=== PATIENT | female | born 1930 | race Caucasian/White ===

== ENCOUNTER 2020-04-02 15:06 | Inpatient (IN) | payer MEDICARE ==
[~2020-04-02] VITALS: Ht 137.2 cm; Wt 52.3 kg
--- NOTE | ~2020-04-02 | CN ---
PATIENT NAME:FILEMON RODGERS MEDICAL RECORD: [id number] : [birth year] LOCATION:D. D.2119 ADMIT DATE: 04/02/20 ACCOUNT: [id number] CONSULTING PHYSICIAN: JAY CARRENO MD REFERRING PHYSICIAN: TENNILLE AUGUSTIN DO DATE OF CONSULTATION: 04/04/2020 HISTORY OF PRESENT ILLNESS: Filemon Rodgers is an 82-year-old female with a history of coronary artery disease, quite a poor historian. Initially was admitted at [facility] for possible pneumonitis. She was COVID negative at that time. She was discharged. Has had more or less failure to thrive. Overall, fatigue, tiredness, shortness of breath. Does have a history of atrial fibrillation, on Coumadin for cerebrovascular accident prophylaxis as well as hypertension, coronary artery disease. We are asked to see her concerning her cardiovascular status. PAST MEDICAL HISTORY: Includes; 1. History of atrial fibrillation. 2. Coronary artery disease. 3. Dyslipidemia. 4. Hypothyroidism, on replacement. 5. Diabetes mellitus. ALLERGIES: PENICILLIN. MEDICATIONS: Include Glipizide 5 mg p.o. daily, Synthroid 50 mcg every day, Lasix 40 every day, simvastatin 10 every day, diltiazem 180 every day, benazepril 20 mg b.i.d., Coumadin per scale. SOCIAL HISTORY: Recently discharged from the hospital. Needs assistance with her ADLs. Never smoked. REVIEW OF SYSTEMS: Unobtainable due to the patient factors. PHYSICAL EXAMINATION: GENERAL: Elderly female appears chronically ill. VITAL SIGNS: Blood pressure 135/64, pulse 83 and regular. HEENT: Normocephalic, atraumatic. NECK: No JVD or bruit. HEART: Irregular, II/ systolic ejection murmur. LUNGS: Diminished breath sounds. ABDOMEN: Soft, nontender. EXTREMITIES: Pulses are palpable, 1+. IMPRESSION: Atrial fibrillation, coronary artery disease, pulmonary edema. Appears to be responding at this point. She is actually diuresing nicely and may develop a bit of contraction alkalosis. We will stop her Bumex. Additionally, given her age, etc., and elevated INR, going to reverse her Coumadin to be in light of current antibiotic therapy. Further recommendations based on above. TRANSINT:[id number] Voice Confirmation ID: [id number] DOCUMENT ID: [id number] CONSULT REPORT [id number] FILEMON RODGERS GREGORY A MD CC: [id number] DICTATION DATE: 04/04/2049 HOG PUSHER: 04/04/20 1631 ADM IN [place] [id number] [place] [id number]
[2020-04-02] MEDS ORDERED: FUROSEMIDE40 MG PO (15:12)
[2020-04-02] MEDS ORDERED: TIROSINT50 MCG PO (15:12)
[2020-04-02] MEDS ORDERED: ZOCOR10 MG PO (15:13)
[2020-04-02] MEDS ORDERED: JANTOVEN1 MG PO (15:13)
[2020-04-02] MEDS ORDERED: CARDIZEM CD180 MG PO (15:14)
[2020-04-02] MEDS ORDERED: JANTOVEN2 MG PO (15:14)
[2020-04-02] MEDS ORDERED: GLUCOTROL XL 5 M5 MG PO (15:14)
[2020-04-02] MEDS ORDERED: LOTENSIN20 MG PO (15:14)
[2020-04-02] MEDS ORDERED: IPRAT-ALBUT 0.5-3 ML UPD (15:15)
--- NOTE | 2020-04-02 15:36 | NUR ---
RT NOTIFIED FOR BLOOD GAS PER MD.
[2020-04-02 15:56] VITALS: BP 144/41
[2020-04-02 17:06] LABS: HEMATOCRIT 37.5 % (36.0-48.0); HEMOGLOBIN 10.9 g/dL (12-16); MCH 30.7 pg (26.0-34.0); MCHC 29.1 g/dL (31.0-37.0); MCV 105.6 fL (80.0-100.0); MEAN PLATELET VOLUME 11.1 fL (7.4-10.4); PLATELET COUNT 233 10x3/uL (130-400); RBC 3.55 10x6/uL (4.00-5.40); RDW 15.3 % (11.5-14.5); WBC 11.5 10x3/uL (4.8-10.8)
[2020-04-02 17:33] LABS: EOSINOPHILS 2 % (0-7); LYMPHOCYTES 4 % (15-50); MONOCYTES 4 % (2-11); NEUTROPHILS 90 % (40-80); PLATELET ESTIMATE NORMAL
[2020-04-02 18:00] LABS: CALC OSMOLALITY 312 mosm/kg (275-300); CALCIUM 9.5 mg/dL (8.5-10.1); CHLORIDE - SERUM 102 mmol/L (98-107); CREATININE - SERUM 1.3 mg/dL (0.6-1.3); GLUCOSE 241 mg/dL (74-106); SODIUM 145 mmol/L (136-145); UREA NITROGEN 58 mg/dL (7-18); eGFR NON AFRICAN AMERICAN 41 mL/min (90-120)
[2020-04-02 18:02] LABS: CARBON DIOXIDE 48.8 mmol/L (21.0-32.0)
[2020-04-02 18:17] LABS: ALBUMIN 2.7 g/dL (3.4-5.0); ALKALINE PHOSPHATASE 78 U/L (30-120); ALT (SGPT) 21 U/L (10-68); BILIRUBIN - TOTAL 0.29 mg/dL (0.2-1.3); CKMB 0.9 U/L (0.0-3.6); CREATINE KINASE 21 UL (21-215); PRO BNP 9279 pg/mL (0-450); PROTEIN - SERUM 5.9 g/dL (6.4-8.2); THYROID STIMULATING HORMONE 0.69 uIU/mL (0.36-3.74); TROPONIN-I 0.037 ng/mL (0.000-0.060)
[2020-04-02 18:20] LABS: APTT 48.2 SECONDS (22.8-39.4); INR 6.82 (0.85-1.17); PROTIME 57.6 SECONDS (11.6-15.0)
--- NOTE | 2020-04-02 19:15 | NUR ---
PT GIVEN BLANKETS, DENIES FURTHER NEEDS AT THIS TIME, CALL LIGHT IN REACH. WILL CONITNUE TO MONITOR.
[2020-04-02 19:20] VITALS: BP 110/38
--- NOTE | 2020-04-02 22:19 | NUR ---
ANSWERED PT'C CALL LIGHT, HEAD OF BED ADJUSTED TO LEVEL OF COMFORT. DENIES FURTHER NEEDS CALL LIGHT IN REACH. WILL CONTINUE TO MONITOR.
[2020-04-02 22:31] VITALS: BP 116/47
[2020-04-02 23:01] VITALS: BP 120/58
[2020-04-03] VITALS (12 sets, daily range): BP systolic 115–158; BP diastolic 36–76
--- NOTE | 2020-04-03 00:14 | NUR ---
PT RESTING, EYES CLOSED, VSS, CALL LIGHT IN REACH. WILL CONTINUE TO MONITOR.
--- NOTE | 2020-04-03 02:41 | NUR ---
ANSWERED PT'S CALL LIGHT, PT ASKING WHEN SHE CAN GO TO A ROOM, PT INFORMED THERE IS NOT ONE AVAILABLE AT THIS TIME AND WILL STAY IN ED UNTIL ONE BECOMES AVAILABLE OR SHE IS DISCHARGED. PT VERBALIZES UNDERSTANDING, DENIES FURTHER NEEDS. CALL LIGHT IN REACH. WILL CONTINUE TO MONITOR.
--- NOTE | 2020-04-03 04:57 | NUR ---
BROUGHT OVER INPATIENT BED FOR PATIENT COMFORT. PT TOLERATED WELL. CALL LIGHT WITHIN REACH. VSS WILL CONTINUE TO MONITOR.
[2020-04-03 05:34] LABS: BASOPHILS 0 % (0-2); EOSINOPHILS 0.4 % (0-7); HEMATOCRIT 38.1 % (36.0-48.0); HEMOGLOBIN 10.6 g/dL (12-16); IMMATURE GRANULOCYTES 0.2 % (0-5); LYMPHOCYTES 5.1 % (15-50); MCH 29.9 pg (26.0-34.0); MCHC 27.8 g/dL (31.0-37.0); MCV 107.3 fL (80.0-100.0); MEAN PLATELET VOLUME 10.4 fL (7.4-10.4); MONOCYTES 6.2 % (2-11); NEUTROPHILS 88.1 % (40-80); PLATELET COUNT 228 10x3/uL (130-400); RBC 3.55 10x6/uL (4.00-5.40); WBC 13.4 10x3/uL (4.8-10.8)
[2020-04-03 05:46] LABS: ANION GAP 0.1 mmol/L (8-16); CALCIUM 9.3 mg/dL (8.5-10.1); CREATININE - SERUM 1.2 mg/dL (0.6-1.3); MAGNESIUM - SERUM 1.7 mg/dL (1.8-2.4); PHOSPHOROUS 4.1 mg/dL (2.5-4.9); POTASSIUM - SERUM 4.5 mmol/L (3.5-5.1)
[2020-04-03 05:56] LABS: CARBON DIOXIDE 47.4 mmol/L (21.0-32.0)
[2020-04-03 06:06] LABS: APTT 61.6 SECONDS (22.8-39.4); INR 7.79 (0.85-1.17); PROTIME 63.8 SECONDS (11.6-15.0)
--- NOTE | 2020-04-03 06:30 | NUR ---
CRITICAL LAB VALUES: PT 63.8, INR 7.79, C02 47.[address] AUGUSTIN, STATES TO HOLD PT'S HOME MEDICATIONS COUMADIN AND WARFARIN, NO FURTHER ORDERS GIVEN.
[2020-04-03 06:55] LABS: BILIRUBIN NEGATIVE (NEGATIVE); KETONE SMALL mg/dL (NEGATIVE); NITRITE NEGATIVE (NEGATIVE); UROBILINOGEN NORMAL (NORMAL)
[2020-04-03 06:56] LABS: BACTERIA FEW /hpf (NONE SEEN); EPITHELIAL CELLS 0-5 /hpf (0-5); RED CELLS - URINE 0-5 /hpf (0-5); WHITE CELLS - URINE 0-5 /hpf (0-5)
--- NOTE | 2020-04-03 08:59 | NUR ---
PT. LYING IN BED WITH EYES OPEN. BIPAP IN PLACE--FUNCTIONING PROPERLY. SPO2--97% EMPTIED 1200ML OF YELLOW URINE FROM MORGAN. NO S/SX OF DISTRESS NOTED. WILL CONT. TO MONITOR.
--- NOTE | 2020-04-03 14:16 | NUR ---
PT'S DONTA NUMBER ADNILO- [phone]
[2020-04-04] VITALS (7 sets, daily range): BP systolic 80–139; BP diastolic 30–65; Ht 137.2 cm; Wt 52.3 kg
--- NOTE | 2020-04-04 05:20 | NUR ---
SANDBAG PLACED TO RIGHT GROIN ALL NIGH, SIT CONTINUES TO KEEP OOZING. PT TOLERATING SANDBAG WELL. SPO2 91% ON 10L HF
[2020-04-04 06:01] LABS: BASOPHILS 0.1 % (0-2); EOSINOPHILS 0.3 % (0-7); HEMATOCRIT 35.2 % (36.0-48.0); IMMATURE GRANULOCYTES 0.5 % (0-5); LYMPHOCYTES 5.3 % (15-50); MCH 30.3 pg (26.0-34.0); MCHC 28.4 g/dL (31.0-37.0); MCV 106.7 fL (80.0-100.0); NEUTROPHILS 87.8 % (40-80); PLATELET COUNT 238 10x3/uL (130-400); RDW 15.1 % (11.5-14.5); WBC 11.2 10x3/uL (4.8-10.8)
[2020-04-04 06:21] LABS: APTT 59.3 SECONDS (22.8-39.4)
[2020-04-04 06:28] LABS: INR 6.69 (0.85-1.17); PROTIME 56.7 SECONDS (11.6-15.0)
[2020-04-04 07:08] LABS: CALCIUM 8.9 mg/dL (8.5-10.1); CHLORIDE - SERUM 101 mmol/L (98-107); CREATININE - SERUM 1.4 mg/dL (0.6-1.3); MAGNESIUM - SERUM 1.6 mg/dL (1.8-2.4); PHOSPHOROUS 3.5 mg/dL (2.5-4.9); SODIUM 151 mmol/L (136-145); UREA NITROGEN 47 mg/dL (7-18); VANCOMYCIN - RANDOM 12.6 ug/mL (10.0-20.0); eGFR NON AFRICAN AMERICAN 38 mL/min (90-120)
[2020-04-04 07:11] LABS: CALC OSMOLALITY 322 mosm/kg (275-300); GLUCOSE 299 mg/dL (74-106); POTASSIUM - SERUM 3.3 mmol/L (3.5-5.1)
[2020-04-04 07:13] LABS: CARBON DIOXIDE 56.1 mmol/L (21.0-32.0)
--- NOTE | 2020-04-04 08:00 | NUR ---
PROVIDED UPDATE ON PLAN OF CARE TO MENA PT'S DAUGHTER AND [facility] PT'S DAUGHTER IN LAW.
--- NOTE | 2020-04-04 08:30 | NUR ---
RT GROIN DRESSING SATURATED WITH BLOOD, DID COMPLETE LINEN CHANGE AND APPLIED NEW PRESSURE DRESSING TO RT GROIN AND PLACED SAND BAG ON TOP. PT A/O X4, A LITTLE SOB ON 10L HF. ENCOURAGED PT TO TAKE IN DEEP BREATHS. HEART MONITOR SHOWING CAF WITH RATE OF 89. BUMEX INFUSING TO RT GROIN TRIPLE LUMEN. PT DENIES ANY OTHER NEEDS AT THIS TIME. CALL LIGHT IN REACH, BED ALARM ON, NAD NOTED, WILL CONTINUE TO MONITOR.
--- NOTE | 2020-04-04 11:23 | NUR ---
NOTIFIED BY [facility] THAT PT HAD A 15 BEAT RUN OF VTACH AND THEN 5MINNUTES LATER PT HAD A 6BEAT RUN. PT ASYMPTOMATIC, RECEIVING A BREATHING TREATMENT WHEN PT HAD FIRST RUN. PAGED DR. MOORE.
--- NOTE | 2020-04-04 14:57 | NUR ---
NOTIFIED FELICIANO AGUILAR OF ABGS RESULTS.
--- NOTE | 2020-04-04 16:06 | NUR ---
O2 ON 15L HF IN THE 60'S, PLACED A NONREBREATHER ON PT AND O2 ONLY IN THE LOWER 80'S, PT ALSO STATED C/O THAT SHE CANNOT WEAR THAT MASK. CALLED DR. NAM AND INFORMED HIM WHATS GOING ON. PER DR. NAM CALL FAMILY AND INFORM THEM TO COME SEE PT BECAUSE WITH HER O2 DROPPING SHE WILL START GETTING CONFUSED AND START DECLINING. CALL PT'S DAUGHTER MAUREEN AND INFORMED HER WHAT DR. NAM SAID, PERMISSION FROM REFRIGERATING OILER YOANDY FOR FAMILY MEMBERS TO TAKE TURNS COMING IN TO VISIT PT.
--- NOTE | 2020-04-04 18:35 | NUR ---
SPOKE WITH [facility] AND INFORMED HER THAT FAMILY WANTS TO TALK TO A DOCTOR, ABOUT POSSIBLE HOSPICE. PER [facility] LUBIN, DOCTORS HAVE ALREADY LEFT. SO IT WILL BE IN THE AM BEFORE A DOCTOR CAN SPEAK WITH THEM. SO IF FAMILY WANTS HOSPICE CONSULT CAN BE MADE SO HOSPICE CAN COME AND EXPLAIN TO PT WHAT HOSPICE IS AND DOES FOR PT. SPOKE WITH PT'S DAUGHTER MENA AND INFORMED HER ABOUT WHAT [facility] SAID. PER MENA, PT'S DAUGHTER OK TO CONSULT HOSPICE.
--- NOTE | 2020-04-04 19:31 | NUR ---
RECIEVED REPORT FROM OFF GOING NURSE.MULTIPLE FAMILY PRESENT AND ORDER HAS NOW BEEN RECIEVED FOR HOSPICE CONSULT. NOTIFIED FRANCISCO ANSWERING SERVICE [phone] OF HOSPICE CONSULT. AWAITING CALL BACK FROM DATA SME RN. DURING THIS TIME, PT HAS BEEN MEDICATED WITH MORPHINE FOR RESTLESSNESS.
--- NOTE | 2020-04-04 21:00 | NUR ---
FAMILY HAS SPOKEN WITH [facility] AND WILL MEET AT 10AM IN THE MORNING TO PLACE PATIENT ON HOSPICE. HAVE SPOKEN WITH BOTH SON AND DAUGHTER. ALL FAMILY ARE NOW GOING HOME FOR THE NIGHT.
[2020-04-05] VITALS: BP 64/14
--- NOTE | 2020-04-05 03:33 | NUR ---
CALL TO PT'S SON, DANILO, AND NOTIFIED HIM THAT HIS MOTHER WAS DOING POORLY AND HE MAY WANT TO COME AND BE WITH HER. ATTEMPTED X 2 TO CALL PT'S DAUGHTER, RITU, AND ONLY REACHED VOICE MAIL. PT WITH AGONAL RESPIRATIONS. O2 @ 15L/HFNC AND O2 SAT NOT ABLE TO BE OBTAINED. FINGERS/ARMS VERY COOL TO TOUCH. PULSE IS STILL STRONG WITH TELEMETRY SHOWING SLOWING OF CONTROLLED AFIB, NOW IN THE 50'S. PT DOES NOT RESPOND TO STAFF ATTEMPTING TO STIMULATE HER. CONTINUE COMFORT MEASURES AND AWAIT FAMILY TO BE AT BEDSIDE.
--- NOTE | 2020-04-05 04:19 | NUR ---
PT'S SON AND DIL ARE NOW AT BEDSIDE. PT STILL OBTUNDED WITH NO RESPONSE TO PHYSICAL OR VERBAL STIMULI. ALL EXTREMITIES COOL TO TOUCH, FINGERS WITH BLUISH TINT. CPOC. COMFORT CARE PER FAMILY REQUESTS.
--- NOTE | 2020-04-05 04:52 | NUR ---
FAMILY X 6 AT BEDSIDE. NO FURTHER RESPIRATIONS NOTED. NO HEARTBEAT AUSCULTATED. ASYSTOLE PER MONITOR.
--- NOTE | 2020-04-05 04:57 | NUR ---
0500 PAGE TO [facility] APN TO REPORT PT'S PASSING.
--- NOTE | 2020-04-05 07:37 | NUR ---
NOTIFED [facility] GARVIN APN AT 0520 THAT PATIENT . [address] HUGGINS 0550 HOME NOTIFIED AND KALLI CALLED ALL PERSONAL BELONGINGS ACCOUNTED FOR AND TAKEN WITH FAMILY INCLUDING A SMALL METAL RING 0640 BODY PICKED UP BY [facility]
--- NOTE | 2020-04-05 11:37 | OP ---
PATIENT NAME: FILEMON HAMILTON MEDICAL RECORD: [id number] :[birth year] LOCATION:D.M2 D.2119 ADMISSION DATE:04/02/20 SURGEON: CONG BAIN MD DATE OF OPERATION: 04/02/2020 PREOPERATIVE DIAGNOSES: 1. Bradycardia. 2. Congestive heart failure. 3. Elevated PT and INR. POSTOPERATIVE DIAGNOSES: 1. Bradycardia. 2. Congestive heart failure. 3. Elevated PT and INR. PROCEDURE: Insertion of right groin triple lumen central venous catheter. SURGEON: Cong Bain MD VETERINARY VIROLOGIST: None. BLOOD LOSS: Minimal. ANESTHESIA: Local. The entire procedure was performed with the presence of a female nurse. I elected to place a groin line as the patient has a markedly elevated prothrombin time and as the likelihood of bleeding or bruising. If she bleeds or develops a hematoma, we really need an area that we can compress with a sandbag. This excludes the neck and subclavian approach. The right groin was sterilely prepped and draped. A local anesthetic was used to infiltrate the skin and subcutaneous tissues of the right groin. Right common femoral vein was percutaneously accessed in an antegrade fashion. A guidewire passed easily. A small skin noble was accomplished. A vessel dilator was used to dilate a subcutaneous tract. A 16-cm triple lumen central venous catheter was inserted to the hub. It was sutured in place times 3. All lumens flushed easily and aspirated dark, nonpulsatile blood. No x-ray is necessary. A sterile dressing was applied. The central venous line can be used immediately. TRANSINT:[id number] Voice Confirmation ID: [id number] DOCUMENT ID: [id number] CONG BAIN MD at 1137 CC: [id number] DICTATION DATE: 04/03/20 1034 TACK WELDER: 04/03/20 2132 DIS IN 04/05/20 [facility] [address] [place] [address]
== END 2020-04-05 06:01 | DRG 291 ==
LOC: D.ER 15:06 → D.ICU 16:37 → D.ER 16:37 → D.EDHOLD 21:51 → D.M2 04-03 18:50
PROVIDERS: Emergency Medicine; ADMIT Family Medicine; ATTEND Family Medicine
PROC: 06HM33Z Insertion of Infusion Device into Right Femoral Vein, Percutaneous Approach (ICD-10-PCS; principal; 2020-04-02)
PROC: 5A09457 Assistance with Respiratory Ventilation, 24-96 Consecutive Hours, Continuous Positive Airway Pressure (ICD-10-PCS; 2020-04-02)
DX: I11.0 Hypertensive heart disease with heart failure (principal); J96.01 Acute respiratory failure with hypoxia; G93.41 Metabolic encephalopathy; J96.22 Acute and chronic respiratory failure with hypercapnia; I50.9 Heart failure, unspecified; I48.91 Unspecified atrial fibrillation; E11.65 Type 2 diabetes mellitus with hyperglycemia; E78.5 Hyperlipidemia, unspecified; J44.9 Chronic obstructive pulmonary disease, unspecified; E03.9 Hypothyroidism, unspecified; I25.10 Atherosclerotic heart disease of native coronary artery without angina pectoris; Z66 Do not resuscitate